=== PATIENT | male | born 1985 | race Hispanic/Latino ===

== ENCOUNTER 2019-02-27 13:39 | Emergency (ER) | payer OTHER | END 2019-02-27 14:22 | disposition home or self-care (01) | LOC: EDH 13:39 → EEVIPCON 13:39 → EDH 14:22 | DX: M25.571 Pain in right ankle and joints of right foot (principal) ==

== ENCOUNTER 2019-04-28 18:30 | Emergency (ER) | payer OTHER ==
[2019-04-28] MEDS ORDERED: CEFTRIAXONE SODIUM 1 GM ONE (19:17)
[2019-04-28] MEDS ORDERED: LIDOCAINE HCL-MPF 1% 2ML VIAL ONE (19:17)
[2019-04-28] MEDS ORDERED: KETOROLAC TROMETHAMINE 60 MG/2 ML VIAL ONE (19:17)
== END 2019-04-28 21:24 | disposition home or self-care (01) ==
LOC: EDH 18:30
DX: H65.02 Acute serous otitis media, left ear (principal); Z72.0 Tobacco use
CPT/HCPCS: 70480; 96372 ×2; 99284; J0696; J1885; J3490

== ENCOUNTER 2019-07-08 05:10 | Emergency (ER) | payer SELFPAY | END 2019-07-08 06:00 | disposition left against medical advice (07) | LOC: EDH 05:10 | DX: R05 Cough (principal); Z53.21 Procedure and treatment not carried out due to patient leaving prior to being seen by health care provider ==